=== PATIENT | male | born 2005 | race Native Hawaiian/Other Pacific Islander ===

== ENCOUNTER 2024-04-07 15:15 | Outpatient (RCR) | payer BC, SELFPAY | END 2024-06-10 10:10 | disposition home or self-care (01) | PROVIDERS: PCP Pediatrics; Visit Provider Orthopaedic Surgery | DX: M22.2X1 Patellofemoral disorders, right knee (principal); M22.2X2 Patellofemoral disorders, left knee; Z51.89 Encounter for other specified aftercare | CPT/HCPCS: 97110; 97161 ==